=== PATIENT | female | born 1970 | race Caucasian/White ===

== ENCOUNTER → 2016-06-03 16:05 | Outpatient (CLI) | payer BC ==
[2014-09-15 12:20] VITALS: BMI 24.4
[~2016-06-03 16:05] MED LIST: CELEXA20 MG PO; NEXIUM40 MG PO
== END | disposition home or self-care (01) ==
LOC: D.MAMMO 08:30
DX: R92.8 Other abnormal and inconclusive findings on diagnostic imaging of breast (principal)

== ENCOUNTER 2017-01-28 05:11 | Day surgery (SDC) | payer BC ==
[2017-01-24 12:12] LABS: BASOPHILS 0.2 % (0-2); EOSINOPHILS 1.1 % (0-7); HEMATOCRIT 41.1 % (36.0-48.0); HEMOGLOBIN 14.5 g/dL (12-16); IMMATURE GRANULOCYTES 0.2 % (0-5); LYMPHOCYTES 23.2 % (15-50); MCH 34.9 pg (26.0-34.0); MCHC 35.3 g/dL (31.0-37.0); MEAN PLATELET VOLUME 11.9 fL (7.4-10.4); NEUTROPHILS 70.3 % (40-80); PLATELET COUNT 203 10x3/uL (130-400); RBC 4.15 10x6/uL (4.00-5.40); RDW 12.9 % (11.5-14.5); WBC 8.4 10x3/uL (4.8-10.8)
[2017-01-24 12:22] LABS: CALC OSMOLALITY 269 mosm/kg (275-300); CALCIUM 9.2 mg/dL (8.5-10.1); CARBON DIOXIDE 26.8 mmol/L (21.0-32.0); CHLORIDE - SERUM 101 mmol/L (98-107); CREATININE - SERUM 0.8 mg/dL (0.6-1.3); GLUCOSE 88 mg/dL (74-106); POTASSIUM - SERUM 4.3 mmol/L (3.5-5.1); SODIUM 136 mmol/L (136-145); UREA NITROGEN 11 mg/dL (7-18); eGFR NON AFRICAN AMERICAN 82 mL/min (90-120)
[~2017-01-28] VITALS: Ht 162.6 cm; Wt 65.8 kg
[~2017-01-28 05:11] MED LIST changes: +TRINTELLIX5 MG PO
[2017-01-28 06:08] VITALS: BP 146/96; Ht 162.6 cm; Wt 65.8 kg
[2017-01-28 06:28] LABS: HCG URINE NEGATIVE (NEGATIVE)
[2017-01-28] MEDS ORDERED: HYDROCODONE-APA1 TAB PO (08:45)
--- NOTE | 2017-01-28 10:06 | NUR ---
1011 TOLERATED JELLO WITHOUT COMPLAINTS OF NAUSEA. NO EMESIS. 1 NORCO 10/325MG PO FOR PAIN. RANKS PAIN @ 09/02. NO COMPLAINTS OR REQUESTS VOICED AT [facility]SI TIME. ADVISED AFTER PAIN MEDICATION HAS HAD TIME TO WORK, WILL GET UP TO BATHROOM. PT VOICED UNDERSTANDING. FRIEND @ BEDSIDE. Liz CAMPBELL R.N.
--- NOTE | 2017-01-28 12:20 | NUR ---
110 DRESSED, AWAKE & ALERT. SITTING UP ON SIDE OF BED. GIVEN DISCHARGE INFORMATION INCLUDING: RX: NORCO 10/325MG, MED REC., D/C INSTRUCTIONS FOR HERNIA REPAIR, RTC APPT., & [facility] OPS D/C INSTRUCTIONS. PT VOICED UNDERSTANDING. TO PRIVATE CAR PER WHEELCHAIR BY THIS NURSE. HOME WITH FRIEND, BRIAN. Liz CAMPBELL R.N.
--- NOTE | 2017-01-28 16:32 | OP ---
PATIENT NAME: FAHEEM IRAHETA MEDICAL RECORD: [id number] :70 LOCATION:D.OPS ADMISSION DATE: SURGEON: ELIAS HENRY MD DATE OF OPERATION: 01/28/2017 PREOPERATIVE DIAGNOSES: 1. Umbilical hernia. 2. Tobacco dependence syndrome. 3. Gastroesophageal reflux disease. POSTOPERATIVE DIAGNOSES: 1. Umbilical hernia. 2. Tobacco dependence syndrome. 3. Gastroesophageal reflux disease. PROCEDURE: Umbilical hernia repair without mesh. SURGEON: Elias Henry MD REPORT OF PROCEDURE: The patient's abdomen was prepped and draped in sterile fashion. A semicircular incision was made on the inferior aspect of the umbilicus. Electrocautery was used to dissect through the subcutaneous tissues. We then bluntly came around the umbilical stalk. Just underneath the umbilical stalk, we transected through the hernia sac. The hernia sac was removed all the way down to the fascial edges. The hernia defect was less than a centimeter in greatest diameter. We freed up the surface of the fascia above and below and reapproximated the fascia using interrupted 0 Prolenes times 4 in a transverse fashion. The wound was then irrigated out with normal saline. The sutures were then tacked down using interrupted 3-0 Vicryls. The umbilicus was tacked down to the fascia using an interrupted 3-0 Vicryl. The subcutaneous tissues were reapproximated with interrupted 3-0 Vicryl. We infused 10 mL of 0.25% Marcaine without epinephrine into the surrounding tissues. The skin incision was then closed with running subcutaneous 5-0 Monocryl and dressed appropriately. COMPLICATIONS: None. CONDITION: Stable. ANESTHESIA: General endotracheal and local. BLOOD LOSS: Minimal. TRANSINT:[id number] Voice Confirmation ID: [id number] DOCUMENT ID: [id number] ELIAS HENRY MD at 1632 CC: MORENO DELUNA MD [id number] DICTATION DATE: 01/28/1748 KNOWLEDGE ENGINEER: 01/28/1729 [facility] 01/28/17 [facility] [address] [place] [address]
== END 2017-01-28 11:00 | disposition home or self-care (01) ==
LOC: D.OPS 05:11 → D.PAN 07:30 → D.OPS 11:00
PROVIDERS: Surgery
DX: K42.9 Umbilical hernia without obstruction or gangrene (principal); K21.9 Gastro-esophageal reflux disease without esophagitis; F17.200 Nicotine dependence, unspecified, uncomplicated; Z01.812 Encounter for preprocedural laboratory examination

== ENCOUNTER 2019-12-03 08:00 | Outpatient (CLI) | payer OTHER ==
[2017-01-28 06:08] VITALS: BMI 24.9
[~2019-12-03 08:00] MED LIST changes: +HYDROCODONE-APA1 TAB PO
== END 2019-12-03 15:52 | disposition home or self-care (01) ==
LOC: D.MAMMO 08:00
PROVIDERS: ATTEND Family Medicine
DX: Z12.31 Encounter for screening mammogram for malignant neoplasm of breast (principal)